=== PATIENT | female | born 1990 | race Caucasian/White ===

== ENCOUNTER 2016-10-01 18:25 | Emergency (ER) | payer OTHER ==
[~2016-10-01] VITALS: Ht 157.5 cm; Wt 68.2 kg
[2016-10-01 18:31] VITALS: BP 104/69; PULSE 90; RESP 20; O2SAT 100
[2016-10-01 19:44] LABS: BASOPHILS % (AUTO) 0.1 % (0-3); EOSINOPHILS % (AUTO) 0.5 % (0-5); MONOCYTES % (AUTO) 4.2 % (4-12); Mean Corpuscular Hemoglobin 30.6 pg (27.0-35.0); Mean Corpuscular Volume 87.3 fL (81-100); NEUTROPHILS % (AUTO) 85.5 % (40-74); Platelet Count 367 bil/L (150-400)
[2016-10-01 20:09] LABS: TROPONIN T < 0.010 ug/L (0.0-0.011)
[2016-10-01 20:18] LABS: Magnesium 1.8 mg/dL (1.6-2.6)
[2016-10-01 21:16] LABS: APPEARANCE,URINE HAZY (CLEAR,HAZY); COLOR,URINE YELLOW (YELLOW); OCCULT BLOOD,URINE TRACE (NEGATIVE); PH,URINE 6.5 (5.0-8.0); UROBILINOGEN,URINE NORMAL (NORMAL)
[2016-10-01] MEDS ORDERED: 0.9% Sodium Chloride 1,000 ML IV ONE (21:35)
--- NOTE | 2016-10-01 22:08 | DRSVH ---
PROCEDURE: CT ANGIO CHEST PULMONARY EMBOLISM ([id number]) INDICATIONS: Chest Pain Rule out PE TECHNIQUE: After the administration of intravenous contrast, 2 mm thick sections acquired from the pulmonary api juwan to the posterior costophrenic angles. 3-dimensional maximum intensity projection (MIP) coronal a nd sagittal reformats were then acquired through the thorax. For radiation dose reduction, the follo wing was used: automated exposure control, adjustment of mA and/or kV according to patient size. COMPARISON: None. FINDINGS: Image quality: Excellent. Pulmonary arteries: Pulmonary arteries are normal in size, and demonstrate no intraluminal filling d efects to suggest central pulmonary embolism. Lungs and pleura: Lungs are clear. No pleural effusions or pneumothorax. Central and peripheral ai rways are patent. Mediastinum: Heart size is normal, without pericardial effusion. No mediastinal or hilar adenopathy . Thoracic aorta is normal in caliber and enhancement. Esophagus is normal in caliber, without hiat al hernia. Bones and chest wall: No suspicious bony lesions. Ribs and thoracic spine appear intact throughout. Thyroid gland appears normal where well visualized. No axillary or supraclavicular adenopathy. Abdomen: Visualized upper abdominal solid organs appear normal in the early arterial phase of enhanc ement. IMPRESSION: No pulmonary embolus found. Source of chest pain is not seen. Dictated by: Ziggy Page M.D. on 10/01/2016 at 22:04 Approved by: Ziggy Page M.D. on 10/01/2016 at 22:06
--- NOTE | 2016-10-01 22:34 | ED.REPORT ---
HPI-Chest Pain Under 40 Date of Service Oct 01, 2016 ED Provider: Afshin Larson MD This is a 25-year-old female who is 27 weeks comes to the emergency department from the [facility], after having 3 hours of severe lower chest pain and upper abdominal pain. She said this started abruptly after doing laundry and sitting in her car. She describes the pain as a pressure that radiated to her back. It was worsened with movement and breathing, however did not feel short of breath. Nothing seemed to make this pain better. She did note that she was became nauseated and vomited twice because of the pain. She denies diarrhea or constipation. She does note some urinary frequency, however does not have any dysuria. Does not notice any irregular bleeding bleeding. She has not had anything like this in the past. She mentions she has had minor swelling in both legs and tingling in her feet. She does mention that baby has been moving after the pain has resolved. Denies fevers, chills, cough, headache and dizziness. Nursing Notes Stated Complaint: 27 WKS , SOB W/ABDOMINAL PAIN Chief Complaint: Chest Pain-Non Cardiac Nature Nursing Notes Reviewed: Yes Allergies: Coded Allergies: Sulfa (Sulfonamide Antibiotics) (Verified Allergy, Unknown, vomiting, 10/01) Scheduled Cephalexin (Keflex) 500 Mg Capsule 500 MG PO TID General Time Seen by MD: 21:15 Chief Complaint Chest pain Risk Factors )( PE Risk Stratification Past Medical History Past Medical History , no active medical conditions Past Surgical History None Smoking History Never Smoker Social History Alcohol Use: Denies alcohol use Drug Use: Denies drug use Review of Systems Constitutional: Denies: Chills, Fatigue, Fever Respiratory: Reports: Pleuritic pain, Denies: Shortness of breath Cardiovascular: Reports: Chest pain, Denies: Palpitations GI: Reports: Abdominal pain, Nausea, Vomiting, Denies: Constipation, Diarrhea, Hematemesis Musculoskeletal: Reports: Back pain Neurologic: Denies: Dizziness, Focal weakness, Headache, Vision change Complete sys rev & neg: except as marked. Female: Reports: , Urinary frequency, Denies: Dysuria, Flank pain, Urinary urgency, Vaginal bleeding - abnl Physical Exam Initial Vital Signs Vital Signs (First) Date Time Temp Pulse Resp B/P Pulse Ox O2 Delivery O2 Flow Rate FiO2 10/01/16 18:31 36.6 90 20 104/69 100 Room Air Initial VS: Reviewed Head / Eyes: Atraumatic, Normocephalic ENT: Mucous membranes moist Abdomen / GI: Soft, Non-tender, No guarding, No rebound Back: No CVA tenderness Extremities: No swelling, No tenderness General/Constitutional: Awake, Alert, No acute distress, Well appearing, Not toxic appearing Respiratory / Chest: Atraumatic, Breath sounds NL, Breath sounds = bilat, No respiratory distress, No rales, No rhonchi, No wheezing Cardiovascular: Heart rate NL, Regular rhythm, Heart sounds NL, No murmurs Fundus approximately 4 cm above umbilicus. Negative Ni's. Mild lower rib tenderness on right. Interpretation & Diagnostics Lab Results Interpretation Result Diagram: 10/01/16193910/01/161939 Test 10/01/16 19:40 10/01/16 19:41 10/01/16 20:56 White Blood Count 17.0th/mm3 (3.8-10.1) Red Blood Count 3.79mil/mm3 (3.90-5.20) Hemoglobin 11.6g/dL (12.0-15.6) Hematocrit 33.1% (35.0-46.0) Mean Corpuscular Volume 87.3fL (81-100) Mean Corpuscular Hemoglobin 30.6pg (27.0-35.0) Mean Corpuscular Hemoglobin Concent 35.0% (32.0-37.0) Red Cell Distribution Width 12.3% (12.3-15.4) Platelet Count 367bil/L (150-400) Neutrophils (%) (Auto) 85.5% (40-74) Lymphocytes (%) (Auto) 9.3% (14-46) Monocytes (%) (Auto) 4.2% (4-12) Eosinophils (%) (Auto) 0.5% (0-5) Basophils (%) (Auto) 0.1% (0-3) Sodium Level 136mEq/L (134-144) Potassium Level 3.5mEq/L (3.5-5.2) Chloride Level 99mEq/L (97-108) Carbon Dioxide Level 19mmol/L (18-29) Blood Urea Nitrogen 4mg/dL (6-20) Creatinine 0.39mg/dL (0.57-1.00) Estimat Glomerular Filtration Rate 289mL/min (>59) Glucose Level 89mg/dL (60-99) Calcium Level 9.2mg/dL (8.5-10.1) Magnesium Level 1.8mg/dL (1.6-2.6) Total Bilirubin 0.2mg/dL (0.0-1.2) Aspartate Amino Transf (AST/SGOT) 16U/L (0-50) Alanine Aminotransferase (ALT/SGPT) 9U/L (0-32) Alkaline Phosphatase 32U/L (25-150) Troponin T < 0.010ug/L (0.0-0.011) Total Protein 7.9g/dL (6.4-8.4) Albumin 3.9g/dL (3.4-5.0) Hold Allison Top Tube Received (Received) Urine Color Yellow (YELLOW) Urine Appearance Hazy (CLEAR,HAZY) Urine pH 6.5 (5.0-8.0) Urine Specific [place] 1.010 (1.003-1.035) Urine Protein Negativemg/dL (NEG,TRACE) Urine Glucose (UA) Negativemg/dL (NEGATIVE) Urine Ketones 15mg/dL (NEGATIVE) Urine Occult Blood Trace (NEGATIVE) Urine Nitrite Negative (NEGATIVE) Urine Bilirubin Negative (NEGATIVE) Urine Urobilinogen Normalmg/dL (NORMAL) Urine Leukocyte Esterase Small (NEGATIVE) Urine RBC 0-2/hpf (0-2) Urine WBC 6-10/hpf (0-5) Urine Epithelial Cells Moderate/hpf (NONE-MOD) Urine Crystals None seen (NONE SEEN) Urine Bacteria Few/hpf (NONE-FEW) Urine Hyaline Casts None/lpf (NONE) Urine Granular Casts None seen (NONE SEEN) Urine Waxy Casts None seen (NONE SEEN) Urine Red Blood Cell Casts None seen (NONE SEEN) Urine White Blood Cell Casts None seen (NONE SEEN) Urine Mucus None seen (None Seen) Urine Trichomonas None seen (NONE SEEN) Urine Yeast None (NONE SEEN) Urinalysis Comment None Urine Culture Reflexed Indicated Re-Eval/Medical Decision Med Decision/Clinical Course This is a 25-year-old female who is 27 weeks who presents for chest pain and abdominal pain. Pain lasted for 3 hours and was made worse with breathing and movement. Patient did have nausea and vomiting associated with it. Differential included pulmonary embolism and cholecystitis. She was not tachycardic and having not in respiratory distress upon seeing her. Her troponins were negative and EKG was unremarkable. There did not seem to be any specific cause for her chest pain and concern was for pulmonary embolism. After discussion with patient CTA chest PE was done and did not show any evidence of pulmonary embolism. Her symptoms could also secondary to cholecystitis. She was not having any active symptoms and Ni's was negative and so did not feel it was necessary to do abdominal ultrasound at this time. She did have an elevated white blood count with urine leuk esterase trace, and white blood cells 6-10. She does not have any dysuria but mentions some frequency. We will treat for questionable UTI with Keflex 500 mg 3 times a day for one week. Discharge & Departure Primary Impression: Non-cardiac chest pain Additional Impressions: Urinary tract infection Urinary tract infection type: acute cystitis Hematuria presence: without hematuria Qualified Code: N30.00 - Acute cystitis without hematuria First trimester Disposition: Home Discharge Condition All VS Reviewed: Yes Condition: Stable Additional Instructions: Follow-up with her OB physician within one week. If symptoms recur, return to the ED for consideration of gallstones. We are treating you for a possible UTI with Keflex. Take it 3 times a day for one week. Referrals: NOPCP (PCP) Attending Statement Seen and examined with Dr Costello on 10/01. Agree with above. Roge Costello DO Oct 01, 2016 22:34 Afshin Larson MD Oct 01, 2016 23:18
[2016-10-01] MEDS ORDERED: CEPH-512 PO (22:57)
[2016-10-01 23:40] VITALS: BP 118/64; PULSE 76; RESP 18; O2SAT 98
== END 2016-10-01 23:05 | disposition home or self-care (01) ==
LOC: SED 19:28
DX: O23.42 Unspecified infection of urinary tract in pregnancy, second trimester (principal); R07.89 Other chest pain; Z3A.27 27 weeks gestation of pregnancy; Z88.2 Allergy status to sulfonamides
CPT/HCPCS: 36415; 71275; 80053; 81000; 82948; 83735; 84484; 85025; 87086; 87088; 93005; 96360; 99285; J7030; Q9967